=== PATIENT | female | born 1985 | race Two or more races ===

== ENCOUNTER 2024-10-27 20:08 | Emergency (ER) | payer MEDICAID, SELFPAY ==
[2024-10-27 20:09] VITALS: BMI 24.2
[2024-10-27 20:10] VITALS: BP 148/92; PULSE 97; RESP 19; TEMP 36.4; O2SAT 100
[2024-10-27 20:11] VITALS: BMI 25.4
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
== END 2024-10-27 22:16 ==
PROVIDERS: Emergency Provider Emergency Medicine; PCP Nurse Practitioner Family
DX: Z02.89 Encounter for other administrative examinations (principal); S20.219A Contusion of unspecified front wall of thorax, initial encounter; R51.9 Headache, unspecified; M54.9 Dorsalgia, unspecified; V49.9XXA Car occupant (driver) (passenger) injured in unspecified traffic accident, initial encounter
CPT/HCPCS: 70450; 71045; 72125; 99284